=== PATIENT | male | born 1945 | race Hispanic/Latino ===

== ENCOUNTER 2017-04-23 10:40 | Emergency (ER) | payer MEDICARE, MEDICAID ==
[2017-04-23] MEDS ORDERED: Clindamycin 150 MG CAP ONE (11:53)
[2017-04-23] MEDS ORDERED: HYDROcodone/Acetaminophen 5/325 mg Tablet ONE (11:53)
[2017-04-23] MEDS ORDERED: Lidocaine 1% 20 ML MDV ONE (12:06)
== END 2017-04-23 11:58 | disposition home or self-care (01) ==
LOC: MADERS 10:40
DX: L03.317 Cellulitis of buttock (principal)
CPT/HCPCS: 99283; J2001